=== PATIENT | female | born 1990 | race Caucasian/White ===

== ENCOUNTER 2023-09-09 14:12 | Emergency (ER) | payer MEDICAID ==
[~2023-09-09] VITALS: Ht 172.7 cm; Wt 120.0 kg
[2023-09-09 14:27] VITALS: O2SAT 100
[2023-09-09] MEDS ORDERED: LIDO1ADH7 TP (15:31)
[2023-09-09] MEDS ORDERED: CYCL5TAB MT (15:31)
[2023-09-09] MEDS ORDERED: IBUP-2029 MT (15:31)
[2023-09-09 15:40] VITALS: BP 128/79; PULSE 89; RESP 16; TEMP 98.2
== END 2023-09-09 15:45 | disposition home or self-care (01) ==
LOC: ER 14:12
DX: M54.2 Cervicalgia (principal); M25.511 Pain in right shoulder
CPT/HCPCS: 99281; 99283

== ENCOUNTER 2024-01-10 20:29 | Emergency (ER) | payer MEDICAID ==
[~2024-01-10] VITALS: Ht 167.6 cm; Wt 127.8 kg
[~2024-01-10 20:29] MED LIST: CYCL5TAB MT; IBUP-2029 MT; LIDO1ADH7 TP
[2024-01-10 20:34] VITALS: O2SAT 99
[2024-01-10 20:46] VITALS: BP 134/82; PULSE 77; RESP 18; TEMP 98.2; O2SAT 99
== END 2024-01-10 21:04 | disposition left against medical advice (07) ==
LOC: ER 20:29
DX: R51.9 Headache, unspecified (principal); Z53.21 Procedure and treatment not carried out due to patient leaving prior to being seen by health care provider